=== PATIENT | female | born 1975 | race Hispanic/Latino ===

== ENCOUNTER 2024-09-20 02:18 | Emergency (ER) | payer OTHER ==
[~2024-09-20] VITALS: Ht 162.6 cm; Wt 82.0 kg
[2024-09-20] MEDS ORDERED: methylPREDNISolone 4 MG HOME.PACK PO ONE (02:30)
[2024-09-20] MEDS ORDERED: ALBUTEROL/IPRATROPIUM 3 ML NEB INH ONE (02:30)
[2024-09-20] MEDS ORDERED: predniSONE 20 MG TAB PO ONE (02:30)
[2024-09-20] MEDS ORDERED: ALBUTEROL SULFATE 8 GM HOME.PACK INH ONE (02:30)
[2024-09-20] MEDS ORDERED: diazePAM 10 MG/2 ML SYR IM ONE (02:30)
[2024-09-20] MEDS ORDERED: GUAIFENESIN/CODEINE 5 ML UDC PO ONE (02:30)
[2024-09-20] MEDS ORDERED: GUAIFENESIN/CODEINE 60 ML HOME.PACK PO ONE (02:30)
[2024-09-20] MEDS ORDERED: AZITHROMYCIN 250 MG HOME.PACK PO ONE (02:45)
[2024-09-20] MEDS ORDERED: VENLAFAXINE HCL75 MG PO (03:05)
[2024-09-20] MEDS ORDERED: AMBIEN5 MG PO (03:05)
[2024-09-20 03:18] VITALS: BP 114/78
== END 2024-09-20 03:18 | disposition home or self-care (01) ==
LOC: ED 02:18
DX: J40 Bronchitis, not specified as acute or chronic (principal); Z79.899 Other long term (current) drug therapy; Z88.5 Allergy status to narcotic agent; Z88.6 Allergy status to analgesic agent
CPT/HCPCS: 71045; 94640; 96372; 99285-25; J3360; J7512

== ENCOUNTER 2025-02-21 11:28 | Emergency (ER) | payer SELFPAY ==
[~2025-02-21] VITALS: Ht 162.6 cm; Wt 75.6 kg
[~2025-02-21 11:28] MED LIST: AMBIEN5 MG PO; VENLAFAXINE HCL75 MG PO
[2025-02-21] MEDS ORDERED: PERCOCET 5-3251 EACH PO (12:58)
[2025-02-21] MEDS ORDERED: VALACYCLOVIR1000 MG PO (12:58)
[2025-02-21 13:07] VITALS: BP 146/89
== END 2025-02-21 13:05 | disposition home or self-care (01) ==
LOC: ED 11:28
DX: B02.9 Zoster without complications (principal); Z88.5 Allergy status to narcotic agent; Z88.6 Allergy status to analgesic agent
CPT/HCPCS: 71101; 99283

== ENCOUNTER 2025-02-28 00:09 | Emergency (ER) | payer SELFPAY | END 2025-02-28 00:37 | disposition home or self-care (01) | LOC: ED 00:09 | DX: B02.9 Zoster without complications (principal); Z88.1 Allergy status to other antibiotic agents; Z88.8 Allergy status to other drugs, medicaments and biological substances ==